=== PATIENT | male | born 1995 | race Caucasian/White ===

== ENCOUNTER 2017-10-18 10:18 | Emergency (ER) | payer SELFPAY ==
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
--- OUTSIDE RECORDS SUMMARY | 2017-10-18 10:22 | XMS REPORT | Summary of Care ---
:1995 Author Organization [facility] Outpatient Imaging [place] Address [facility] [place], [place] [address]- Encounter HQ Nathanntr_[place](FIN) [id number] Date(s): 12/10/14 - 12/10/14 [facility] Outpatient Imaging [address] [address]- [phone] Discharge Disposition: Home Attending Physician: Danny Izquierdo MD Vital Signs No data available for this section Problem List No data available for this section Allergies, Adverse Reactions, Alerts Substance Reaction Severity Status NKDA Active Medications No data available for this section Results No data available for this section Immunizations Vaccine Date Refusal Reason diphtheria/pertussis, acel/tetanus adult 07/03/14 Procedures Procedure Date Related Diagnosis Body Site Tonsillectomy Wrist repair Social History Social History Type Response Substance Abuse Use: Past. Type: Marijuana. Alcohol Past, Type Beer. Smoking Status Former smoker; Number of years: 1; Started at age: 17.0; Stopped at age: 18; Ready to change: Yes; Concerns about tobacco use in household: No; Exposure to Tobacco Smoke None; Cigarette Smoking Last 365 Days Yes; Reg Smoking Cessation Counseling Yes Assessment and Plan No data available for this section
--- OUTSIDE RECORDS SUMMARY | 2017-10-18 10:22 | XMS REPORT | Summary of Care ---
:1995 Author Encounter COLLEEN Singh(ELICIA) [id number] Date(s): 08/25/14 - 08/25/14 [facility] Outpatient Imaging [address] [id number]- [phone] Discharge Disposition: Home Physician Attending: Riaz Solomon MD Vital Signs No data available for [...]
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
[2017-10-18] MEDS ORDERED: IBUPROFEN 400 MG TAB ONE (10:48)
[2017-10-18] MEDS ORDERED: DEXAMETHASONE 10 MG/ML VIAL ONE (10:48)
[2017-10-18] MEDS ORDERED: ONDANSETRON 4 MG (ODT) TAB ONE (10:48)
--- NOTE | 2017-10-18 12:04 | ER ---
Nurse's Notes [facility] Name: Gaston Carrasco Age: 21 yrs Sex: Male : 1995 Arrival Date: 10/18/2017 Time: 10:22 Bed 17 Private MD: None, None Diagnosis: Acute pharyngitis;Vomiting Presentation: 10/18 10:30 Presenting complaint: Patient states: Sore throat for a few days, vomiting since la1 yesterday, pt reports unable to tolerate PO at this time. Transition of care: patient was not received from another setting of care. Onset of symptoms was October 18, 2017. Risk Assessment: Do you want to hurt yourself or someone else? Patient reports no desire to harm self or others. Initial Sepsis Screen: Does the patient meet any 2 criteria? No. Patient's initial sepsis screen is negative. Does the patient have a suspected source of infection? No. Patient's initial sepsis screen is negative. Care prior to arrival: None. 10:30 Method Of Arrival: Ambulatory la1 10:30 Acuity: HARI 3 la1 Historical: - Allergies: 10:31 No Known Allergies; la1 - PMHx: 10:31 None; la1 - Immunization history:: Adult Immunizations up to date. - Social history:: Smoking status: Patient/guardian denies using tobacco. - Ebola Screening: : No symptoms or risks identified at this time. Screenin:01 Abuse screen: Denies threats or abuse. Nutritional screening: No deficits noted. em Tuberculosis screening: No symptoms or risk factors identified. Fall Risk None identified. Assessment: 10:40 General: Appears in no apparent distress. comfortable, Behavior is calm, cooperative. em Pain: Complains of pain in throat. Neuro: Level of Consciousness is awake, alert, obeys commands, Oriented to person, place, time, situation. Cardiovascular: Denies chest pain, shortness of breath, Capillary refill < 3 seconds. Respiratory: Airway is patent Respiratory effort is even, unlabored, Respiratory pattern is regular, symmetrical, Breath sounds are clear bilaterally. GI: Abdomen is flat. EENT: Throat is reddened has patchy exudate has enlarged tonsils bilaterally. Derm: Skin is intact, Skin is pink, warm \T\ dry. Musculoskeletal: Range of motion: intact in all extremities. 11:00 Reassessment: Patient appears in no apparent distress at this time. I agree with above iw assessment by Codey Todd LVN. 11:40 Reassessment: Patient appears in no apparent distress at this time. Patient and/or em family updated on plan of care and expected duration. Pain level reassessed. Patient is alert, oriented x 3, equal unlabored respirations, skin warm/dry/pink. pt given water for PO challenge, tolerated well Patient states feeling better. Patient states symptoms have improved. 13:14 Reassessment: Patient appears in no apparent distress at this time. Patient and/or em family updated on plan of care and expected duration. Pain level reassessed. Patient is alert, oriented x 3, equal unlabored respirations, skin warm/dry/pink. pending UA, unable to give specimen at this time Patient states feeling better. Patient states symptoms have improved. 14:09 Reassessment: Patient appears in no apparent distress at this time. Patient and/or em family updated on plan of care and expected duration. Pain level reassessed. Patient is alert, oriented x 3, equal unlabored respirations, skin warm/dry/pink. 14:10 Reassessment: Patient appears in no apparent distress at this time. pending completion em of IV NS bolus. Vital Signs: 10:31 BP 140 / 90; Pulse 113; Resp 16; Temp 98.7(O); Pulse Ox 100% on R/A; Weight 104.33 kg; la1 Height 6 ft. 2 in. (187.96 cm); 11:59 BP 124 / 70; Pulse 98; Resp 16; Pulse Ox 98% on R/A; Pain 4/10; em 13:08 BP 123 / 89; Pulse 88; Resp 16; Pulse Ox 97% on R/A; em 14:10 BP 128 / 81; Pulse 89; Resp 16; Pulse Ox 97% on R/A; Pain 1/10; em 10:31 Body Mass Index 29.53 (104.33 kg, 187.96 cm) la1 ED Course: 10:22 Patient arrived in ED. mr 10:22 None, None is Private Physician. mr 10:24 Cosme Casey PA is PHCP. jmm 10:24 Cuba Ruiz MD is Attending Physician. [facility] 10:31 Triage completed. la1 10:32 Arm band placed on right wrist. la1 10:34 Codey Todd LVN is Primary Nurse. em 11:01 Patient has correct armband on for positive identification. Bed in low position. Call em light in reach. 11:01 No provider procedures requiring assistance completed. em 13:04 Initial lab(s) drawn, by me, sent to lab. Inserted saline lock: 20 gauge in right mh5 antecubital area, using aseptic technique. Blood collected. 13:05 Amylase, Serum Sent. [facility] 13:05 Basic Metabolic Panel Sent. [facility] 13:05 CBC with Diff Sent. [facility] 13:05 Creatinine for Radiology Sent. [facility] 13:05 Hepatic Function Sent. [facility] 13:05 Lipase Sent. [facility] 14:43 IV discontinued, intact, bleeding controlled, No redness/swelling at site. Pressure em dressing applied. Administered Medications: 10:52 Drug: Dexamethasone 10 mg Route: IM; Site: right deltoid; em 11:49 Follow up: Response: No adverse reaction em 10:53 Drug: Zofran 4 mg Route: PO; em 11:49 Follow up: Response: No adverse reaction; Nausea is decreased em 10:53 Drug: Motrin 800 mg Route: PO; em 11:50 Follow up: Response: No adverse reaction em 13:13 Drug: NS 0.9% 1000 ml Route: IV; Rate: 1000 ml; Site: right antecubital; em 14:36 Follow up: IV Status: Completed infusion; IV Intake: 1000ml em Intake: 14:36 IV: 1000ml; Total: 1000ml. em Outcome: 12:04 Discharge ordered by MD. [facility] 13:59 Discharge ordered by MD. [facility] 14:43 Discharged to home ambulatory. em 14:43 Condition: good 14:43 Discharge instructions given to patient, Instructed on discharge instructions, follow up and referral plans. medication usage, Demonstrated understanding of instructions, follow-up care, medications, Prescriptions given X 1. 14:44 Patient left the ED. em Signatures: Cosme Casey PA PA jmm Rivera, Maria Codey Todd LVN LVN em Britta German RN RN iw Attema, Lee, RN RN la1 Martinez, Maria [facility] Corrections: (The following items were deleted from the chart) 14:10 13:14 Reassessment: Patient appears in no apparent distress at this time. Patient em and/or family updated on plan of care and expected duration. Pain level reassessed. Patient is alert/active/playful, equal unlabored respirations, skin warm/dry/pink. pending UA, unable to give specimen at this time Patient states feeling better. Patient states symptoms have improved. em 14:43 11:01 Patient did not have IV access during this emergency room visit. em em
--- NOTE | 2017-10-18 12:05 | EDPHYS ---
Physician Documentation [facility] Name: Gaston Carrasco Age: 21 yrs Sex: Male : 1995 Arrival Date: 10/18/2017 Time: 10:22 Bed 17 Private MD: None, None ED Physician Cuba Ruiz HPI: 10/18 10:40 This 21 yrs old Male presents to ER via Ambulatory with complaints of Sore jmm Throat, Vomiting. 10:40 The patient presents with sore throat. Onset: The symptoms/episode began/occurred jmm gradually, 3 day(s) ago. Associated signs and symptoms: Pertinent positives: vomiting. This is a 21 year old male with no chronic medical conditions presents to the ED with 3 days of sore throat. Patient also admits to multiple episodes of vomiting with abdominal cramping. . Historical: - Allergies: 10:31 No Known Allergies; la1 - PMHx: 10:31 None; la1 - Immunization history:: Adult Immunizations up to date. - Social history:: Smoking status: Patient/guardian denies using tobacco. - Ebola Screening: : No symptoms or risks identified at this time. ROS: 10:40 Eyes: Negative for injury, pain, redness, and discharge, Cardiovascular: Negative for jmm chest pain, palpitations, and edema, Respiratory: Negative for shortness of breath, cough, wheezing, and pleuritic chest pain. 10:40 MS/Extremity: Negative for injury and deformity, Skin: Negative for injury, rash, and discoloration, Neuro: Negative for headache, weakness, numbness, tingling, and seizure. 10:40 Constitutional: Positive for malaise. 10:40 ENT: Positive for sore throat. 10:40 Abdomen/GI: Positive for abdominal pain, vomiting. 10:40 All other systems are negative. Exam: 10:40 Head/Face: atraumatic. Chest/axilla: Normal chest wall appearance and motion. jmm Cardiovascular: Regular rate and rhythm. No edema appreciated Respiratory: Normal respirations, no respiratory distress appreciated 10:40 Constitutional: The patient appears in no acute distress, alert, awake. 10:40 ENT: Posterior pharynx: Airway: normal, Uvula: normal, midline, erythema, that is moderate, peritonsillar mass, is not appreciated, pooling of secretions, is not appreciated. 10:40 Neck: ROM/movement: is normal. 10:40 Cardiovascular: Rate: normal, Rhythm: regular, Pulses: no pulse deficits are appreciated. 10:40 Abdomen/GI: Inspection: abdomen appears normal, Bowel sounds: normal, Palpation: abdomen is soft and non-tender. 10:40 Musculoskeletal/extremity: ROM: intact in all extremities. 10:40 Skin: Appearance: Color: normal in color. 10:40 Neuro: Orientation: is normal, Mentation: is normal, Memory: is normal. 10:40 Psych: Behavior/mood is pleasant, cooperative. Vital Signs: 10:31 BP 140 / 90; Pulse 113; Resp 16; Temp 98.7(O); Pulse Ox 100% on R/A; Weight 104.33 kg; la1 Height 6 ft. 2 in. (187.96 cm); 11:59 BP 124 / 70; Pulse 98; Resp 16; Pulse Ox 98% on R/A; Pain 4/10; em 13:08 BP 123 / 89; Pulse 88; Resp 16; Pulse Ox 97% on R/A; em 14:10 BP 128 / 81; Pulse 89; Resp 16; Pulse Ox 97% on R/A; Pain 1/10; em 10:31 Body Mass Index 29.53 (104.33 kg, 187.96 cm) la1 MDM: 10:35 Patient medically screened. [facility] 11:51 Data reviewed: vital signs, nurses notes. Counseling: I had a detailed discussion with nyasia the patient and/or guardian regarding: the historical points, exam findings, and any diagnostic results supporting the discharge/admit diagnosis, lab results, the need for outpatient follow up, to return to the emergency department if symptoms worsen or persist or if there are any questions or concerns that arise at home. ED course: Patient is able to tolerate PO in the ED. Patient has no pain on extension of the neck concerning for retropharyngeal abscess, no uvualr shift concerning for peritonsillar abscess. The patient's abdomen is soft and non tender to palpation, I do not currently suspect an acute abdominal process. Patient is given return precautions for early appendicitis. Patient understood and agrees with the plan of care. . ED course: Symptoms appear most likely due to a viral syndrome. 10/18 10:40 Order name: Strep; Complete Time: 11:15 [facility] 10/18 11:13 Order name: Throat Culture [facility] 10/18 12:13 Order name: Amylase, Serum; Complete Time: 13:58 [facility] 10/18 12:13 Order name: Basic Metabolic Panel; Complete Time: 13:58 [facility] 10/18 12:13 Order name: CBC with Diff [facility] 10/18 12:13 Order name: Creatinine for Radiology; Complete Time: 13:58 [facility] 10/18 12:13 Order name: Hepatic Function; Complete Time: 13:58 [facility] 10/18 12:13 Order name: Lipase; Complete Time: 13:58 [facility] 10/18 13:18 Order name: CBC Smear Scan [facility] 10/18 11:15 Order name: PO challenge; Complete Time: 11:49 [facility] 10/18 12:13 Order name: IV Saline Lock; Complete Time: 13:06 [facility] 10/18 12:13 Order name: Labs collected and sent; Complete Time: 13:06 [facility] Administered Medications: 10:52 Drug: Dexamethasone 10 mg Route: IM; Site: right deltoid; em 11:49 Follow up: Response: No adverse reaction em 10:53 Drug: Zofran 4 mg Route: PO; em 11:49 Follow up: Response: No adverse reaction; Nausea is decreased em 10:53 Drug: Motrin 800 mg Route: PO; em 11:50 Follow up: Response: No adverse reaction em 13:13 Drug: NS 0.9% 1000 ml Route: IV; Rate: 1000 ml; Site: right antecubital; em 14:36 Follow up: IV Status: Completed infusion; IV Intake: 1000ml em Disposition: 10/18/17 13:59 Discharged to Home. Impression: Acute pharyngitis, Vomiting. - Condition is Stable. - Discharge Instructions: Nausea and Vomiting, Adult, Pharyngitis. - Prescriptions for Zofran 4 mg Oral Tablet - take 1 tablet by ORAL route every 12 hours As needed; 20 tablet. - Medication Reconciliation Form, Thank You Letter, Antibiotic Education, Prescription Opioid Use form. - Follow up: Private Physician; When: 2 - 3 days; Reason: Recheck today's complaints, Continuance of care, Re-evaluation by your physician. - Notes: Please return to the emergency department if you develop worsening abdominal pain, fever, vomiting, worsening sore throat, shortness of breath or any other concerning symptoms. Addendum: 10/19/2017 16:08 Co-signature as Attending Physician, Cuba Ruiz MD. g s Signatures: Dispatcher [employer] EDCosme Garcia PA PA [facility] Codey Todd, DRAG SAWYER DRAG SAWYER em Duran Clemente, RN RN la1 Cuba Ruiz MD MD gs Corrections: (The following items were deleted from the chart) 10/18 12:07 12:04 10/18/2017 12:04 Discharged to Home. Impression: Acute pharyngitis; Vomiting. [facility] Condition is Stable. Forms are Medication Reconciliation Form, Thank You Letter, Antibiotic Education, Prescription Opioid Use. Follow up: Private Physician; When: 2 - 3 days; Reason: Recheck today's complaints, Continuance of care, Re-evaluation by your physician. [facility] 14:36 12:13 Urine Dipstick-Ancillary ordered. [facility] em 14:44 13:59 10/18/2017 13:59 Discharged to Home. Impression: Acute pharyngitis; Vomiting. em Condition is Stable. Prescriptions for Zofran ODT 4 mg Oral tablet,disintegrating - place 1 tablet by TRANSLINGUAL route every 4-6 hours; 20 tablet. and Forms are Medication Reconciliation Form, Thank You Letter, Antibiotic Education, Prescription Opioid Use. Follow up: Private Physician; When: 2 - 3 days; Reason: Recheck today's complaints, Continuance of care, Re-evaluation by your physician. [facility]
[2017-10-18] MEDS ORDERED: NA CHLORIDE 0.9% 1,000 ML ONE (12:33)
[2017-10-18 13:17] LABS: Absolute Lymphocytes (CBC) 0.6 K/uL (0.7-4.9); Absolute Monocytes 0.3 K/uL (0.1-1.3); Absolute Neutrophil 7.5 K/uL (1.8-8.0); Basophils % 0.2 % (0-1.3); Hematocrit 42.5 % (39.6-49.0); Lymphocytes % 6.9 % (15.3-44.8); MCH 30.1 pg (27.0-35.0); MCV 87.9 fL (80-100); MPV 8.3 fL (7.6-11.3); Monocytes % 3.2 % (3.3-12.3); RBC Red Blood Cell Count 4.84 M/uL (4.33-5.43)
[2017-10-18 13:36] LABS: ALT/SGPT 78 U/L (12-78); AST/SGOT 51 U/L (15-37); Albumin 4.3 g/dL (3.4-5.0); Alkaline Phosphatase 84 U/L (45-117); Amylase Level 37 U/L (25-115); BUN Blood Urea Nitrogen 12 mg/dL (7-18); Bicarbonate 25 mmol/L (21-32); Bilirubin Direct 0.2 mg/dL (0-0.2); Bilirubin Total 0.7 mg/dL (0.2-1.0); Glucose Level 107 mg/dL (74-106); Lipase 117 U/L (73-393); Potassium 3.7 mmol/L (3.5-5.1); Protein, Total 8.4 g/dL (6.4-8.2); Sodium Level 134 mmol/L (136-145)
[2017-10-18 16:48] LABS: Blood Morphology Comment NOT SEEN (NOT SEEN); Platelet Estimate ADEQ; Urine White Blood Cell Casts OK
== END 2017-10-18 14:44 | disposition home or self-care (01) ==
LOC: ER 10:18
DX: R11.10 Vomiting, unspecified (principal)
CPT/HCPCS: 36415; 80048; 80076; 82150; 83690; 85025; 87070; 87081; 96360; 96372; 99284; J1100; J7030